=== PATIENT | male | born 1970 | race Caucasian/White ===

== ENCOUNTER → 2020-01-08 | Outpatient (CLI) | payer BC, OTHER ==
[~2020-01-08] MED LIST: EVEKEO10 MG PO; FLAGYL500 MG PO; HYDROCODONE-AP1 EAC6 PO; LEVAQUIN 500 M500 M2 PO; NORCO 5-325 TA1 EACH PO; VIVANCE PO
== END ==
LOC: LAB 11:11
PROVIDERS: ATTEND Family Medicine
DX: U07.1 COVID-19 (principal)

== ENCOUNTER 2020-02-06 10:32 | Inpatient (IN) | payer BC, OTHER ==
[~2020-02-06] VITALS: Ht 190.5 cm; Wt 101.8 kg
--- NOTE | ~2020-02-06 | HC ---
[facility] [place] [address] CONSULTATION Name: KORY BRO PR Room #: 215-P ADM IN M.R.#: [id number] Admission: 02/06/20 Attend Phys: Bran Oliver MD, Discharge: Date of : 72 Report #: [id number] THIS REPORT FOR: cc: FAM - No family physician/PCP FAM - No family physician/PCP Nellie Elias MD ~ ATTENDING PHYSICIAN: Dr. Oilver. CONSULTING PHYSICIAN: Dr. Elias. CHIEF COMPLAINT: Left-sided chest and shoulder pain. HISTORY OF PRESENT ILLNESS: The patient is a 49-year-old gentleman who had elective right total hip arthroplasty at [facility] on 02/05/2020. The morning of 02/06/2020, he complained of having left shoulder pain and chest pain. He reported the pain lasted about 5 minutes and was intense. The patient had an EKG done, which showed evidence of ST segment elevation, which resolved when his chest pain had resolved. He was also noted to have elevated blood pressure. The patient was transferred to [facility] where he was evaluated by Dr. Oliver and has now been admitted in the CCU. He is anticoagulated and so on a nitroglycerin drip. He has been pain free. He does complain of having hiccups, which have now improved. He was able to sleep last night. PAST MEDICAL HISTORY: Significant for history of hip osteoarthritis, attention deficit disorder, restless leg syndrome, history of atrial fibrillation and gastroesophageal reflux disease. ALLERGIES: He is known to be ALLERGIC TO PENICILLIN. MEDICATIONS: He was currently on was the hydrocodone, Percocet 5/325 two pills every 4 hours p.r.n. and Toradol 30 mg every 6 hours IV for 48 hours. SOCIAL HISTORY: The patient does continue to smoke. He drinks alcohol regularly. REVIEW OF SYSTEMS: The patient did complain of the hiccups. Denied having any nausea, vomiting, abdominal pain or urinary symptoms. PHYSICAL EXAMINATION: GENERAL: Pleasant young gentleman was resting in bed, did not appear to be in distress. He was awake, alert, oriented to place and person. VITAL SIGNS: He was afebrile with a temperature of 36.9, pulse of 73, respiratory rate 18, blood pressure 117/63, oxygen saturation 98% on room air. HEENT: Skull was atraumatic. There are no pallor, no icterus. Mucosa moist. NECK: Supple. [facility] [address] [place] [address] CONSULTATION Name: KORY BRO PR Room #: 215-P [facility]#: [id number] Admission: 02/06/20 Attend Phys: Bran Oliver MD, Discharge: Date of : 72 Report #: [id number] LUNGS: Clear to auscultation bilaterally with no wheeze or crackles. HEART: First and second normal. ABDOMEN: Soft, nontender, bowel sounds normally heard. EXTREMITIES: Examined extremities did not reveal any edema. NEUROLOGIC: Nonfocal. EKG showed sinus rhythm with ST segment elevation in the inferior leads during the pain, which had resolved with resolution of the pain. LABORATORY DATA: Showed a troponin of less than 0.06. APTT was 23.8, white cell count was 10.2, hemoglobin 11.9, hematocrit 34.5 and a platelet count of 167. PT was 10.3, INR 1. Sodium 141, potassium 4.6, chloride 105, bicarbonate of 30, BUN of 20, creatinine of 1.1, glucose was 107. The cholesterol was 160. Triglycerides 88, LDL was 82, HDL of 61. ASSESSMENT: 1. Unstable angina. 2. Right hip osteoarthritis, status post total hip arthroplasty. 3. Gastroesophageal reflux disease. 4. Constipation. 5. Restless leg syndrome. 6. Attention deficit disorder. PLAN: To continue him on the IV heparin and IV nitroglycerin and plans as per Dr. Oliver for further workup of his coronary artery disease. We will consult Ortho for followup on his hip replacement and also start him on physical therapy. Continue his pain medications for now and would like to thank Dr. Oliver following the part of the team taking care of the patient. By: [id number] Nellie Elias MD /nt
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
[2020-02-06 10:33] VITALS: BP 161/103
[2020-02-06 11:07] LABS: HEMATOCRIT 34.5 % (42.0-52.0); HEMOGLOBIN 11.9 gm/dL (14.0-18.0); MCH 31.6 pg (26.0-34.0); MCHC 34.5 g/dL (28.0-37.0); MCV 91.6 fL (80.0-100.0); RBC 3.76 mil/uL (4.50-6.00); RDW 13.4 % (10.5-14.5); WBC 10.2 thou/uL (4.0-11.0)
[2020-02-06 11:08] LABS: ANION GAP 6 mmol/L (7-16); BUN 20 mg/dL (7-18); CALCIUM 8.9 mg/dL (8.5-10.1); CHLORIDE 105 mmol/L (98-107); CO2 30 mmol/L (21-32); CREATININE 1.1 mg/dL (0.7-1.3); GLUCOSE 107 mg/dL (74-106); POTASSIUM 4.6 mmol/L (3.5-5.1); SODIUM 141 mmol/L (136-145)
[2020-02-06 11:14] LABS: PROTIME 10.3 Seconds (9.3-11.4)
[2020-02-06 11:17] LABS: TROPONIN-I <0.06 ng/mL (<0.06)
[2020-02-06 12:04] VITALS: BP 133/88
[2020-02-06 13:02] VITALS: BP 118/77
[2020-02-06 13:23] VITALS: BP 128/86
--- NOTE | 2020-02-06 15:28 | NUR ---
PT ARRIVED TO CCU AT 1317 FROM ER, ASSESSED, VSS, PT STATES NO CP NOW, ON HEPARIN AND NITRO GTTS, AT SIDE, PT ABLE TO AMBULATE WITH WALKER, STEADY GAIT, AGREED TO USE URINAL AT BEDSIDE AND CALL LIGHT FOR HELP WHEN NEEDING TO HAVE A BM, DR BROOKE SAW PT IN ED AND ASKED THAT WE CALL HIS CELL WITH ANY QUESTIONS TONIGHT (INSTEAD OF DR RODRIGUEZ, WHO IS WASTE ELIMINATION). EDWARDO SAID NO MORE TROPS TODAY, BUT ORDERED ONE FOR AM. WILL MONITOR
[2020-02-06 15:32] LABS: CHOLESTEROL 160 mg/dL (<200); HDL CHOLESTEROL 61 mg/dL (>40); LDL CHOLESTEROL 82 mg/dL (<100); TC:HDL 2.6 Ratio (Not establshd); TRIGLYCERIDE 88 mg/dL (<150); VLDL 18 mg/dL (<40)
[2020-02-06 16:06] VITALS: BP 130/84
[2020-02-06 19:20] VITALS: BP 148/97
[2020-02-07 00:16] VITALS: BP 133/74
[2020-02-07 03:30] VITALS: BP 117/63
[2020-02-07 08:50] VITALS: BP 121/81
[2020-02-07 11:41] VITALS: BP 110/73
--- NOTE | 2020-02-07 18:41 | NUR ---
PT STATED HE'S HAD NO CHEST PAIN SINCE 02/05, PT HAS HAD HICCUPS QUITE OFTEN TODAY, HE VOMITED HIS BREAKFAST BECAUSE OF THEM, THORAZINE DOSE HAS BEEN DOUBLED PER EDWARDO. 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
[2020-02-07 19:48] VITALS: BP 115/66
--- NOTE | 2020-02-07 21:32 | EKG ---
[place] [address] [facility] [place] [address] ELECTROCARDIOGRAM REPORT Name: KORY BRO MA Room #: 215- ADM IN M.R.#: [id number] Admission: 02/06/20 Attend Phys: Bran Oliver MD, Discharge: Date of : 72 Report #: [id number] [facility] Test Date: 2020-02-07 Test Time: 09:23:16 Pat Name: KORY BRO Department: Room: 215 P Gender: M Clam Dredger: : 1970 Requested By: Bran Oliver Order Number: [id number] MD: Micah Caceres Measurements Intervals [place] Rate: 89 P: 45 LA: 166 QRS: 5 QRSD: 102 T: -53 QT: 375 QTc: 457 Interpretive Statements Sinus rhythm Poor R wave progression ST segment elevations in 1 and aVL clinical correlation suggested Nonspecific T abnormalities, inferior leads Baseline wander in lead(s) V1 Compared to ECG 02/06/2020 16:15:54 No significant changes Electronically Signed On 02-07-2020 21:32:15 HTML WEB DEVELOPER by Micah Caceres [email or web address] <ELECTRONICALLY SIGNED> By: Micah Caceres MD 02/07/20 2132 2 2 Micah Caceres MD /EPI
--- NOTE | 2020-02-07 21:37 | EKG ---
[address] [place] [address] ELECTROCARDIOGRAM REPORT Name: KORY BRO MD Room #: 215-P ADM IN M.R.#: [id number] Admission: 02/06/20 Attend Phys: Bran Oliver MD, Discharge: Date of : 72 Report #: [id number] [facility] Test Date: 2020-02-06 Test Time: 16:15:54 Pat Name: KORY BRO Department: Room: 215 P Gender: M Bar Catcher: FER : 1970 Requested By: Bran Oliver Order Number: [id number] MD: Micah Caceres Measurements Intervals [place] Rate: 75 P: 13 DC: 170 QRS: -3 QRSD: 98 T: -15 QT: 406 QTc: 454 Interpretive Statements Sinus rhythm Borderline T abnormalities, inferior leads Compared to ECG 02/06/2020 10:49:04 T-wave abnormality now present Acute current of injury finding no longer present with only slight elevation persistent in lateral leads Electronically Signed On 02-07-2020 21:36:48 PROFESSIONAL CASTER by Micah Caceres [email or web address] <ELECTRONICALLY SIGNED> By: Micah Caceres MD 02/07/20 2136 1615 1615 Micah Caceres MD /EPI
[2020-02-08 05:15] VITALS: BP 121/76
[2020-02-08 07:25] VITALS: BP 128/87
--- NOTE | 2020-02-08 07:36 | EKG ---
[address] [place] [address] ELECTROCARDIOGRAM REPORT Name: ADALI,KORY GA Room #: 215-P ADM IN M.R.#: [id number] Admission: 02/06/20 Attend Phys: Bran Oliver MD, Discharge: Date of : 72 Report #: [id number] [facility] ED Test Date: 2020-02-06 Test Time: 10:32:01 Pat Name: KORY BRO Department: Room: [facility] Gender: Die Cut Operator: POONAM : 1970 Requested By: David Krishnamurthy Order Number: [id number] MD: Lionel Oshea Measurements Intervals [place] Rate: 72 P: 10 SC: 168 QRS: -5 QRSD: 98 T: -12 QT: 406 QTc: 445 Interpretive Statements Sinus rhythm Atrial premature complex Borderline T abnormalities, inferior leads Compared to ECG 05/17/2015 11:31:35 Atrial premature complex(es) now present Electronically Signed On 02-08-2020 7:36:14 AUTOMOBILE SERVICE ADVISOR by Lionel Oshea [email or web address] <ELECTRONICALLY SIGNED> By: Lionel Oshea MD, [facility] 02/08/20 0736 31 103 Lionel Oshea MD, FAC /EPI
--- NOTE | 2020-02-08 07:37 | EKG ---
[address] [place] [address] ELECTROCARDIOGRAM REPORT Name: ADALIKORY TN Room #: 215- ADM IN M.R.#: [id number] Admission: 02/06/20 Attend Phys: Bran Oliver MD, Discharge: Date of : 72 Report #: [id number] [facility] ED Test Date: 2020-02-06 Test Time: 10:49:04 Pat Name: KORY BRO Department: Room: 215 Gender: M Heatset Winder Operator: POONAM : 1970 Requested By: Bran Oliver Order Number: [id number] MD: Lionel Oshea Measurements Intervals [place] Rate: 84 P: 6 RI: 166 QRS: 27 QRSD: 96 T: 46 QT: 389 QTc: 460 Interpretive Statements Sinus rhythm Inferior and lateral infarct, acute Baseline wander in lead(s) V6 Compared to ECG 02/06/2020 10:32:01 Myocardial infarct finding now present Electronically Signed On 02-08-2020 7:37:02 COST REPORT CLERK by Lionel Oshea [email or web address] <ELECTRONICALLY SIGNED> By: Lionel Oshea MD, [facility] 02/08/20 0737 1049 1049 Lionel Oshea MD, [facility] /EPI
--- NOTE | 2020-02-08 07:45 | NUR ---
ASSUME CARE 1900. PT/VITALS STABLE. INTERMITTENT PAIN ON RIGHT HIP S/P HIP REPLACEMENT. GOOD ENDURANCE TO ACTIVITY. PT IS UP TO BATHROOM WITH WALKER. STEADY GAIT NOTED. NO DISTRESS NOTED. ASSESSMENT CHARTED. PROGRESSING WELL WITH POC. PLAN IS SCHEDULED CATH TODAY. WILL CONTINUE TO MONITOR AND FOLLOW WITH POC
[2020-02-08 09:40] VITALS: BP 124/74
[2020-02-08] MEDS ORDERED: NORVASC5 MG PO (10:07)
[2020-02-08] MEDS ORDERED: TOPROL XL25 MG PO (10:07)
[2020-02-08] MEDS ORDERED: PLAVIX 75 MG TA75 MG PO (10:07)
[2020-02-08] MEDS ORDERED: IMDUR 30 MG TAB30 M1 PO (10:07)
[2020-02-08] MEDS ORDERED: ASPIR 8181 MG PO (10:07)
[2020-02-08 11:25] VITALS: BP 148/90
[2020-02-08 12:00] VITALS: BP 119/70
[2020-02-08] MEDS ORDERED: NITROGLYCERIN0.4 MG SUBLING (12:15)
[2020-02-08] MEDS ORDERED: LIPITOR40 MG PO (12:15)
--- NOTE | 2020-02-08 13:43 | NUR ---
ORDERS RECEIVED FOR PT EVAL AND TREAT. Pt WAS AT CARDIAC CATH THIS MORNING AND THEN WAS ON BEDREST FOR 4 HOURS. Pt LIVES WITH WITH LOTS OF STAIRS AT HOME BUT HAS HANDRAILS. HAS FWW FROM RECENT R THR ON 02/05/20. HAS NOT BEEN DOING PT YET. REVIEWED THR PRECAUTIONS WITH Pt. PROVIDED THR EX HANDOUT AND REVIEWED WITH Pt. DECLINED MOBILITY NEEDS WITH PT STATING "I KNOW HOW TO WALK." PLANNING TO D/C HOME TODAY Pt ALREADY HAS D/C ORDERS. Pt HAS BEEN UP WALKING IN HALLWAY PRIOR TO CATH WITH PER CHART. ACUTE PT TO SIGN OFF.
[2020-02-08 14:06] VITALS: BP 119/70
--- NOTE | 2020-02-08 14:21 | NUR ---
OT ORDERS RECEIVED, CHART REVIEWED. RECENT THR, ADMITTED WITH CHEST PAIN, CARDIAC CATH TODAY. SPOKE WITH PATIENT AND , OBSERVED TO AMBULATE IN HALLWAY, DISCUSSED THR PRECAUTIONS, HAS SHOWER CHAIR AND ASSIST AVAILABLE AT HOME. NO ACUTE CARE NEEDS, HOPEFUL TO D/C TODAY. ACUTE OT TO SIGN OFF.
--- NOTE | 2020-02-08 14:59 | NUR ---
ASSESSMENT CHARTED - MEDS PER APR - GIVEN PERCOCET FOR PAIN WITH GOOD RELIEF. COLT DIET AND FLUIDS. NO CO'S OF NAUSEA. 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 PT SEEN BY DR BROOKE POST CATH - ABLE TO GO HOME - PT UP WITH THE USE OF WALKER - SEEN BY PHYS AND OCC THERAPY. INSTRUCTION RE HOME MEDS/ CARE AND FOLLOW GIVEN TO PATIENT STATED UNDERSTANDING OF INSTRUCTION GIVEN. NO CO'S OF AT TIME OF D/C. LEFT UNIT VIA WHEEL CHAIR - HOME VIA PVT VEHICLE ACCOMPANIED BY .
--- NOTE | 2020-02-08 15:17 | NUR ---
Rec consult for possible therapy at home. Patient rec hip replacement on outpatient basis at surgery center. Patient admits to [facility] with c/p. Spoke with physical therapist who reports patient safe for discharge home today. She already sp with patient who is proceeding with outpatient therapy from center. no needs for casemgt.
--- NOTE | 2020-02-09 11:25 | H ---
[facility] [address] [address] HISTORY AND PHYSICAL Name: KORY BRO OK Room #: 215-P [facility] IN M.R.#: [id number] Admission: 02/06/20 Attend Phys: Bran Oliver MD, Discharge: 02/08/20 Date of : 72 Report #: [id number] THIS REPORT FOR: cc: FAM - No family physician/PCP FAM - No family physician/PCP Bran Oliver MD [facility] ~ DATE OF SERVICE: 02/06/2020 HISTORY OF PRESENT ILLNESS: The patient is a 49-year-old male, I am asked to see in the Emergency Room at [facility]. Dr. Adam called me from [facility]. He is postop 1 day from a right total hip. He had onset of severe left-sided shoulder pain this morning, associated with some mild shortness of breath and dyspnea. This was then subsequently found to have at the time of an EKG, ST elevation suddenly in the inferior leads when the pain and blood pressure resolved; the EKG normalized. This is a story from [facility] and transferred here by ambulance pain free. However, he had a second recurrence of this and this was actually caught on EKGs here at [facility] with the discomfort he has approximately 2-[address] depression or ST elevation in the inferior leads. This should be consistent with presumably a dominant right coronary artery. He is currently pain free and comfortable. His hemodynamics are stable. He does not have a cardiac history with the exception of being ruled out for atrial fibrillation in the past and palpitations, but no chest pain. There was an episode 6 months ago after lifting weight, he had significant shoulder pain, the same shoulder and then subsequently had this intermittently some with exertion and some not over the last 6 months with most recently a decrease in exercise tolerance. Does not take blood pressure or cholesterol medicines. He is a moderate social plus alcohol and tobacco user. He really takes no regular medications. He has received some hydrocodone today. PAST MEDICAL HISTORY: Positive for these palpitations, although documented AFib, bilateral hip surgery, has had an appendectomy. It looks like there was hospitalization here with some lipase, possibly pancreatitis. There was a history of heavier alcohol use I believe in the past. FAMILY HISTORY: Father had congestive heart failure in his 40s and 50s, presumably ischemic. 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 He is , currently alcohol and tobacco, moderate amount; 8 children. REVIEW OF SYSTEMS: Essentially negative except for stated above with some occasional nocturia. LABORATORY DATA: Chest x-ray is unremarkable. Lab has an H and H of 11.9 and [facility] [address] [place] [address] HISTORY AND PHYSICAL Name: KORY BRO OK Room #: 215-P [facility] IN M.R.#: [id number] Admission: 02/06/20 Attend Phys: Bran Oliver MD, Discharge: 02/08/20 Date of : 72 Report #: [id number] 34.5, white count 10.2. Chemistry: Potassium 4.6, creatinine 1.1. Troponin is negative, less than 0.06. PHYSICAL EXAMINATION: GENERAL: Pleasant, alert. He is in no distress, somewhat right hip discomfort. VITAL SIGNS: Pulse is 70, blood pressure 130/84. HEENT: Eyes reveal xanthelasmas. Pharynx is clear. NECK: Shows preserved upstrokes without JVD or bruits. LUNGS: Clear. CARDIOVASCULAR: Regular rate and rhythm, S1, S2, without murmur or gallop. ABDOMEN: Soft. No HSM or abdominal bruit. EXTREMITIES: Reveal there is right hip incision, which is clean and dry. Some edema around the site, although no clear hematoma formation. No discoloration. Distal pulses intact. NEUROLOGIC: Intact. SKIN: Warm and dry without xanthoma or ulcer. ASSESSMENT: 1. Unstable angina with transient left shoulder pain with ST elevation in inferior leads, resolved. 2. Day 1 postop, right total hip. 3. History of gout. 4. History of moderate alcohol and tobacco use. 5. Strong family history of premature coronary disease. RECOMMENDATIONS AND PLAN: Nitro and heparin drips have been initiated. He is pain free. I have initiated also 5 of IV Lopressor here in the Emergency Room. I would like further discussion with Ortho, continue low dose anticoagulation here and try to wait 24-48 hours to intervene for more intense anticoagulation to try to prevent hemarthrosis or bleeding into this hip postoperatively. However, if we need to proceed, we certainly will more emergently. We will repeat serial EKGs and troponin in the a.m., transfer to CCU. Will follow with Dr. Adam. Thank you for asking me to assist in the care of this patient. <ELECTRONICALLY SIGNED> By: Bran Oliver MD, FACC 02/09/20 1125 1215 1314 Bran Oliver MD, FACC /nt
--- NOTE | 2020-02-09 18:02 | CATHLAB ---
[facility] [place] [address] INVASIVE PROCEDURE REPORT Name: KORY BRO CO Room #: 215-P DIS IN M.R.#: [id number] Admission: 02/06/20 Attend Phys: Bran Oliver MD, Discharge: 02/08/20 Date of : 72 Report #: [id number] THIS REPORT FOR: cc: FAM - No family physician/PCP FAM - No family physician/PCP Bran Oliver MD [facility] ~ APPROVED REPORT Study performed: 02/08/2020 07:53:43 Patient Details Patient Status: In-Patient Room #: The patient is a 50 year-old male Event Personnel Bran Oliver Telephone Recorder, Karen Mansfield RTR [employer] RTR Monitor, Alexandra Yeung RN orthopedic dentist Performed Left Heart Cath w/or w/o Coronaries [id number] [facility] Abdominal Aortography 209192 Art Access - R femoral artery* Hemostasis w/ Mynx 72797 Initial Mod Sed Same Phys/QHP Gr5y [id number] 80670 Mod Sed Same Phys/QHP Ea [id number] Indication Chest pain Procedure Narrative The patient was brought urgently to the Cardiac Catheterization Laboratory and was prepped and draped in a sterile manner. The Right Groin^ was infiltrated with 1% Lidocaine subcutaneous anesthesia. A PINNACLE 6FR Sheath #[id number] sheath was inserted into the RFA^. Coronary angiography was performed using coronary diagnostic catheters. The right coronary system was accessed and visualized with a LAUNCHER 6FR JR 4 #[id number] catheter. The left coronary system was accessed and visualized with a JL4 catheter. The left ventricle was accessed and visualized with a PIGTAIL catheter. Closure device was deployed with a Fr MYNXGRIP 6/7F #[id number]. The patient tolerated the procedure well and there were no complications associated with the procedure. There was no hematoma. Intraoperative Conscious Sedation Sedation start time: 8:13 Case end Time: 9:08 [facility] [address] [place] [address] INVASIVE PROCEDURE REPORT Name: KORY BRO CO Room #: 215-P [facility]#: [id number] Admission: 02/06/20 Attend Phys: Bran Oliver, Discharge: 02/08/20 Date of : 72 Report #: [id number] Fentanyl 100 mcg Versed 4 mg Fluoro Time: 4.10 minutes Dose: DAP 24987.00 cGycm2 1887 mGy Contrast Type and Amount: Omnipaque 290 ml Hemodynamics The aortic pressure is 110/76 mmHg with a mean of 92 mmHg. The left ventricular pressure is 126/12 mmHg with a mean of mmHg. The left ventricular end diastolic pressure is 22 mmHg. Conclusion 1. Normal left ventricular size with subtle inferior wall leg EF 50 to 55%. #2 abdominal aortogram intact with no evidence of aneurysm brisk flow is noted. #3 left main mild disease giving rise to LAD and circumflex. #4 the LAD extends to the apex wraps the apex it was minimal irregularity. #5 first diagonal branch is moderate distribution multiple areas of what subsequently turned out to be vasospasm. There is mild to moderate disease but predominantly alleviated by IC nitro. #6 circumflex OM mid distal circumflex lesion eccentric 60% initially tighter also pre-IC nitro. Multiple areas of reactive endothelium here final result appears to have a 60% distal circumflex lesion. We will treat this medically. #7 dominant right coronary artery initially significant reactive endothelium with proximal 90% stenosis and PDA long area of stenosis. Post nitro markedly improved with minimal residual. Recommendations and plan: Continue aggressive risk factor modification. Anti-spasm therapy complete smoking cessation and avoidance of all vasoconstrictive medications. Patient pain-free transfer back to CCU to continue monitoring. Will obtain outpatient nuclear stress testing looking to evaluate ischemia in the circumflex distribution. Addition of calcium letitia nitrates aspirin statin antiplatelet medications. <ELECTRONICALLY SIGNED> By: Bran Oliver MD, FACC 02/09/201800 00 00 Bran Oliver MD, FACC /INF
== END 2020-02-08 15:11 | disposition home or self-care (01) | DRG 287 ==
LOC: ER 10:32 → 2N 12:05 → EROBS 12:05 → 2N 12:55
PROVIDERS: Emergency Medicine; ADMIT Internal Medicine Cardiovascular Disease; ATTEND Internal Medicine Cardiovascular Disease
PROC: B2111ZZ Fluoroscopy of Multiple Coronary Arteries using Low Osmolar Contrast (ICD-10-PCS; principal; 2020-02-08)
PROC: 4A023N7 Measurement of Cardiac Sampling and Pressure, Left Heart, Percutaneous Approach (ICD-10-PCS; principal; 2020-02-08)
DX: I25.110 Atherosclerotic heart disease of native coronary artery with unstable angina pectoris (principal); K21.9 Gastro-esophageal reflux disease without esophagitis; G25.81 Restless legs syndrome; K59.00 Constipation, unspecified; F41.9 Anxiety disorder, unspecified; F17.210 Nicotine dependence, cigarettes, uncomplicated; F90.9 Attention-deficit hyperactivity disorder, unspecified type; E78.5 Hyperlipidemia, unspecified; I10 Essential (primary) hypertension; Z88.0 Allergy status to penicillin
CPT/HCPCS: 10081